=== PATIENT | male | born 1965 | race Caucasian/White ===

== ENCOUNTER 2017-03-11 07:05 | Emergency (ER) | payer OTHER ==
[~2017-03-11] VITALS: Ht 160 cm; Wt 94.3 kg
[2017-03-11 07:09] VITALS: BP 162/94
--- NOTE | 2017-03-11 07:16 | ED GI/GU/ABDOMINAL COMPLAINT ---
History of Present Illness General Chief Complaint: Abdominal Pain/Flank Pain Stated Complaint: ABD PAIN X FEW DAYS Source: patient Exam Limitations: no limitations Vital Signs & Intake/Output Vital Signs & Intake/Output ED Intake and Output 03/12 0000 03/11 1200 Intake Total Output Total Balance Patient 208 lb Weight Allergies Coded Allergies: NO KNOWN ALLERGIES (09/18/12) Reconcile Medications Amlodipine Bes/Olmesartan Med (Amlodipine-Olmesartan 5-20 MG) 5 MG-20 MG TABLET 1 TAB PO DAILY HEART (Reported) Atorvastatin Calcium 10 MG TABLET 1 TAB PO DAILY CHOLESTEROL (Reported) Diclofenac Sodium 75 MG TABLET.DR 1 TAB PO BID PAIN (Reported) Pantoprazole Sodium (Protonix) 40 MG TABLET.DR 1 TAB PO DAILY GERD Triage Note: 51 Y/O MALE C/O MID ABDOMINAL PAIN SINCE SATURDAY; STATES STARTS IN CENTER AND RADIATES OUT TO BILATERAL LOWER QUADRANTS. DENIES NAUSEA. STATES "REINA BEEN EATING GOOD". + CONSTITPATION. DENIES URINARY SYMPTOMS. AFEBRILE Triage Nurses Notes Reviewed? yes Onset: Abrupt Duration: day(s): (3) Timing: recent history Location: epigastric Radiation: LUQ, RUQ Activities at Onset: none Associated Symptoms: CONSTIPATION HPI: This is a 51-year-old male presents to the chief complaint of epigastric abdominal pain since Saturday. Pain radiates to bilateral upper quadrants. Pain is worse with deep breath. Pain started on Saturday. He states it is been there all weekend. Denies any nausea or vomiting. He feels a little bit distended. He felt he was constipated but last bowel movement was yesterday he denies any black or bloody stool. No urinary symptoms. He does admit to drinking a few drinks on Saturday and over the weekend. He does not drink daily. He is also on statins for high cholesterol. Patient takes diclofenac twice a day for arthritis pains. No previous history of peptic ulcer disease or GI bleed with the medication. Past History Travel History Traveled to [place] past 21 day No Medical History Any Pertinent Medical History? 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 No Review of Systems Review of Systems Constitutional: Denies: chills, fever. EENTM: Reports: no symptoms. Respiratory: Denies: cough, short of breath. Cardiovascular: Denies: chest pain, palpitations. GI: Reports: abdominal pain, bloating, constipation. Denies: nausea, vomiting. Genitourinary: Reports: no symptoms. Musculoskeletal: Reports: no symptoms. Skin: Reports: no symptoms. Neurological/Psychological: Reports: no symptoms. Hematologic/Endocrine: Denies: bruising, bleeding, polyuria, polydipsia. Immunologic/Allergic: Denies: splenectomy. All Other Systems: Reviewed and Negative Physical Exam Physical Exam General Appearance: well developed/nourished, alert, awake Head: atraumatic, active bleeding Eyes: Bilateral: normal appearance, PERRL, EOMI. Ears, Nose, Throat, Mouth: hearing grossly normal, moist mucous membrane Neck: normal inspection, supple, full range of motion Respiratory: normal breath sounds, chest non-tender, no respiratory distress Cardiovascular: regular rate/rhythm Gastrointestinal: normal bowel sounds, soft, tenderness (EPIGASTRIC) Back: normal inspection, normal range of motion Extremities: normal range of motion Neurologic/Psych: no motor/sensory deficits, awake, alert, oriented x 3 Skin: intact, normal color, warm/dry Core Measures ACS in differential dx? No Severe Sepsis Present: No Septic Shock Present: No Progress Differential Diagnosis: AAA, AMI, cholecystitis, pancreatitis, peptic ulcer, PUD /GERD, SBO Plan of Care: Orders Procedure Date/time Status URINALYSIS 03/11 726 Complete TROPONIN LEVEL 03/11 726 Complete PARTIAL THROMBOPLASTIN TIME 03/11 726 Complete PROTHROMBIN TIME 03/11 726 Complete LYME TITRE 03/11 726 Active LIPASE 03/11 726 Complete COMPREHENSIVE METABOLIC PANEL 03/11 726 Complete CBC WITHOUT DIFFERENTIAL 03/11 726 Complete EKG 03/11 726 Active Laboratory Tests 03/11/17 0750: Urine Color YEL, Urine Clarity CLEAR, Urine pH 6.0, Ur Specific [place] 1.025, Urine Protein NEG, Urine Ketones NEG, Urine Nitrite NEG, Urine Bilirubin NEG, Urine Urobilinogen 0.2, Ur Leukocyte Esterase NEG, Ur Microscopic EXAM NOT REQUIRED, Urine Hemoglobin NEG, Urine Glucose NEG 03/11/17 0740: Anion Gap 16, Estimated GFR > 60, BUN/Creatinine Ratio 33.3 H, Glucose 99, Calcium 9.3, Total Bilirubin 0.4, AST 22, ALT 42, Alkaline Phosphatase 114, Troponin I < 0.01, Total Protein 7.6, Albumin 4.4, Globulin 3.2, Albumin/ Globulin Ratio 1.4, Lipase 108, PT 10.3, INR 0.98, APTT 23 L, CBC w Diff NO MAN DIFF REQ, RBC 5.63, MCV 83.5, MCH 29.0, RDW 13.3, MPV 7.4, Gran % 74.2, Lymphocytes % 18.3 L, Monocytes % 5.5, Eosinophils % 1.5, Basophils % 0.5, Absolute Granulocytes 6.8 H, Absolute Lymphocytes 1.7, Absolute Monocytes 0.5, Absolute Eosinophils 0.1, Absolute Basophils 0, PUBS MCHC 34.7, Lyme Disease Antibody Pending Diagnostic Imaging: Viewed by Me: Ultrasound. Discussed w/RAD: Ultrasound. Radiology Impression: PATIENT: RUSSELL GARDUNO PRESENT AGE: 51 PATIENT ACCOUNT NO: [id number] : 67 LOCATION: [facility] ORDERING PHYSICIAN: CARON RODRIGUES MD SERVICE DATE: 03/11/17 EXAM TYPE: US - US-LIMITED ABDOMEN EXAMINATION: US ABDOMEN LIMITED CLINICAL INFORMATION: Epigastric abdominal pain radiating to the right upper quadrant. COMPARISON: None TECHNIQUE: Real-time imaging of the right upper quadrant abdominal viscera. FINDINGS: PANCREAS: The pancreatic head and body are unremarkable, with the tail partially obscured by gas. LIVER: The liver is mildly prominent with increased echogenicity. No focal lesion or intrahepatic biliary duct dilatation. GALLBLADDER: Normal. The gallbladder is physiologically distended without evidence of stones, sludge, polyps, wall thickening or pericholecystic fluid. COMMON BILE DUCT: Normal in caliber measuring 0.3 cm in diameter. RIGHT KIDNEY: Normal. No hydronephrosis. No renal calculi or focal parenchymal lesions. The kidney measures 11.1 cm in maximum dimension. FREE FLUID: None. IMPRESSION: Hepatic steatosis. Otherwise unremarkable study. DICTATED BY: JESUS LENTZ, DMITRY DATE/TIME DICTATED:03/11/17916 WATER POLLUTION CONTROL INSPECTOR:JENN DATE/TIME TRANSCRIBED:03/11/17916 CONFIDENTIAL, DO NOT COPY WITHOUT APPROPRIATE AUTHORIZATION. <Electronically signed in Other Vendor System> SIGNED BY: JESUS LENTZ,DMITRY 03/11/17924 Initial ED EKG: NSR Departure Departure Time of Disposition: 926 Disposition: HOME OR SELF CARE Condition: Stable Clinical Impression Primary Impression: GERD (gastroesophageal reflux disease) Secondary Impressions: Fatty liver Referrals: ADRIENNE LENTZ,STERLING (PCP/Family) ROSALIE LENTZ,KARELY Wu Additional Instructions: Take the Protonix as directed and please follow bland diet. Follow-up with the GI specialist listed. Avoid any alcohol intake. Please return to the ER immediately for any worsening abdominal pain, fever, chills, nausea or vomiting. Departure Forms: Customer Survey General Discharge Information Prescriptions: Current Visit Scripts Pantoprazole Sodium (Protonix) 1 TAB PO DAILY #30 TAB
[2017-03-11 07:49] LABS: ABSOLUTE BASOPHIL COUNT 0 /CUMM (0.0-0.2); ABSOLUTE EOSINOPHIL COUNT 0.1 /CUMM (0.0-0.7); ABSOLUTE GRANULOCYTE CT 6.8 /CUMM (1.4-6.5); ABSOLUTE LYMPH COUNT 1.7 /CUMM (1.2-3.4); ABSOLUTE MONOCYTE COUNT 0.5 /CUMM (0.10-0.60); BASOPHIL % 0.5 % (0.0-2.0); EOSINOPHIL % 1.5 % (0-5); GRANULOCYTE % 74.2 % (42.2-75.2); MEAN CORPUSCULAR HGB CONC 34.7 G/DL (33.0-37.0); MEAN CORPUSCULAR VOLUME 83.5 FL (80.0-94.0); MEAN PLATELET VOLUME 7.4 FL (7.4-10.4); PLATELET COUNT 382 /CUMM (130-400); RBC DISTRIBUTION WIDTH 13.3 % (11.5-14.5); RED BLOOD CELL CT 5.63 /CUMM (4.70-6.10); WHITE BLOOD CELL COUNT 9.1 /CUMM (4.8-10.8)
[2017-03-11] MEDS ORDERED: AMLODIPINE-OLM1 EACH PO (08:14)
[2017-03-11] MEDS ORDERED: ATORVASTATIN CA10 M1 PO (08:14)
[2017-03-11] MEDS ORDERED: DICLOFENAC SODI75 M2 PO (08:15)
[2017-03-11 08:17] LABS: PT 10.3 SEC (9.4-12.5); PTT 23 SEC (25-37)
--- NOTE | 2017-03-11 09:25 | ULTRASOUND REPORT ---
EXAMINATION: US ABDOMEN LIMITED CLINICAL INFORMATION: Epigastric abdominal pain radiating to the right upper quadrant. COMPARISON: None TECHNIQUE: Real-time imaging of the right upper quadrant abdominal viscera. FINDINGS: PANCREAS: The pancreatic head and body are unremarkable, with the tail partially obscured by gas. LIVER: The liver is mildly prominent with increased echogenicity. No focal lesion or intrahepatic biliary duct dilatation. GALLBLADDER: Normal. The gallbladder is physiologically distended without evidence of stones, sludge, polyps, wall thickening or pericholecystic fluid. COMMON BILE DUCT: Normal in caliber measuring 0.3 cm in diameter. RIGHT KIDNEY: Normal. No hydronephrosis. No renal calculi or focal parenchymal lesions. The kidney measures 11.1 cm in maximum dimension. FREE FLUID: None. IMPRESSION: Hepatic steatosis. Otherwise unremarkable study.
[2017-03-11] MEDS ORDERED: PROTONIX40 M3 PO (09:27)
== END 2017-03-11 09:34 ==
LOC: ERH 07:05
PROVIDERS: Emergency Medicine
DX: K21.9 Gastro-esophageal reflux disease without esophagitis (principal); K76.0 Fatty (change of) liver, not elsewhere classified
CPT/HCPCS: 86618; 81003; 93005; 93010

== ENCOUNTER → 2018-02-25 | Day surgery (SDC) | payer OTHER ==
--- NOTE | 2018-02-22 15:27 | History & Physical Pre-Op ---
General Information and HPI History of Present Illness: Zelda is a 52 year old male with a long-standing and worsening complaint of painful arthritis involving the left and right feet. The patient has undergone an extended course of conservative care, including shoe gear and activity modification, rest, immobilization and courses of NSAIDs. None of this is yielded him any significant relief. The patient presents today for preoperative surgical consultation. Allergies/Medications Allergies: Coded Allergies: NO KNOWN ALLERGIES (09/18/12) Home Med list Amlodipine Bes/Olmesartan Med (Amlodipine-Olmesartan 5-20 MG) 5 MG-20 MG TABLET 1 TAB PO DAILY HEART (Reported) Atorvastatin Calcium 10 MG TABLET 1 TAB PO DAILY CHOLESTEROL (Reported) Dexlansoprazole (Dexilant) 60 MG CAP..BP 1 CAP PO DAILY GI (Reported) Diclofenac Sodium 75 MG TABLET.DR 1 TAB PO BID PAIN (Reported) Past History Medical History Neurological: NONE EENT: NONE Cardiovascular: hypertension, HIGH CHOLESTEROL Respiratory: NONE Gastrointestinal: NONE Hepatic: NONE Renal: NONE Musculoskeletal: ARTHRITIS Psychiatric: NONE Endocrine: NONE Blood Disorders: NONE Cancer(s): NONE 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 Heart sounds rate and rhythm regular. Lower extremity physical exam demonstrates intact pedal pulses bilaterally. Pulses dorsalis pedis and posterior tibial arteries are palpable bilaterally. Patient without any sensory motor deficits. Deep tendon reflexes grossly intact. Patient noted to have significant pain with palpation range of motion through the left and right first metatarsophalangeal joints. Assessment/Plan Assessment/Plan: Painful hallux limitus left and right feet. A lengthy discussion reviewing both surgical and conservative options was held the patient at bedside and the patient elected to go forward with surgery despite the risks. As Ranked By This Provider Problem List: 1. Acquired hallux limitus of both feet Attending MD Review Statement Attending Statement Attending MD Statement: examined this patient
[~2018-02-25] VITALS: Ht 160 cm; Wt 97.5 kg
[~2018-02-25] MED LIST: AMLODIPINE-OLM1 EACH PO; ATORVASTATIN CA10 M1 PO; DEXILANT60 M1 PO; DICLOFENAC SODI75 M2 PO; PROTONIX40 M3 PO
--- NOTE | 2018-02-25 12:11 | Operative Report ---
Operative/Inv Procedure Report Surgery Date: 02/25/18 Name of Procedure: 1 cheilectomy right foot 2 cheilectomy left foot 3 intraoperative administration of ankle block anesthesia Pre-Operative Diagnosis: 1 hallux limitus right foot 2 hallux limitus left foot Post-Operative Diagnosis: The same Estimated Blood Loss: scant Surgeon/Process Development Technician: Dane Dowling DPM, DPM Anesthesia: moderate sedation, block Operative/Procedure Note Note: After obtaining informed consent the patient was brought to the operating room and placed on the operating table in the supine position. The patient was then securely fastened to the operating table utilizing safety belt. After Mr.'s of IV sedation, 10 mL of 0.5% Marcaine plain was infiltrated about the patient's left and right ankles. 2 well-padded ankle tourniquets were placed about the patient's bilateral lower extremities. 2 g of Ancef were delivered intravenously times one dose. The left right foot within scrubbed, prepped and draped in usual aseptic manner. Right lower extremity was elevated to examine to limb, which point the ankle tourniquet was inflated 250 mmHg. Attention directed dorsal aspect the right foot, where a 6 cm linear incision was made just medial to the course of the extensor hallucis longus tendon. Dissection was then carried down subtenons tissues. All vital neurovascular structures were identified protected. A linear capsulotomy was performed exposing exostoses identified at the metatarsal head of the base of proximal phalanx. Sagittal bone saw was utilized to resect the exostoses medially, dorsally and laterally. The base of the proximal phalanx was rongeured free of exostoses. The wound was then irrigated with copious amounts of normal sterile saline. The capture structures were then reapproximated 3-0 Vicryl and the subtenons tissues reports a 4-0 Vicryl. The skin edges were then reapproximated 4-0 nylon. The incision was dressed with Xeroform 4 x 4's Kerlix and Dany wrap. The tourniquet was then deflated. Next, the left lower extremity was elevated to examine to limb, at which point the ankle tourniquet was inflated 250 bone as a mercury. Again, attention was directed dorsal aspect of the left foot, where 6 cm linear incision was made just medial to the course of the extensor listless longus tendon. Dissection was then carried down subtenons tissues. All vital neurovascular structures were identified protected. A linear capsulotomy was then performed, exposing exostoses at the head of the metatarsal and the base of proximal phalanx. A sagittal bone saw was utilized to resect the exostoses medially dorsally and laterally. The exostoses were then rongeured free of the base of proximal phalanx. The wound was irrigated with copious amounts normal sterile saline. The capture structures were reapproximated with 3-0 Vicryl. Subtenons tissues reports a 4-0 Vicryl and the skin edges reprepped with 4-0 nylon. Incision was dressed with Xeroform 4 x 4's Kerlix and an Dany wrap. The patient was noted to tolerate both procedure and anesthesia well and the patient was transported from the operating room to recovery with vital signs stable best assess intact all digits bilateral feet. Please cc a copy of this dictation to Jd Reddy DPM.
== END ==
LOC: STS 01:24
DX: M20.5X2 Other deformities of toe(s) (acquired), left foot (principal); M20.5X1 Other deformities of toe(s) (acquired), right foot; I10 Essential (primary) hypertension; M19.072 Primary osteoarthritis, left ankle and foot; M19.071 Primary osteoarthritis, right ankle and foot; Z87.891 Personal history of nicotine dependence
CPT/HCPCS: J0690; J1100; J1885; J2001; J2250